=== PATIENT | male | born 1990 | race Caucasian/White ===

== ENCOUNTER 2022-06-09 12:15 | Emergency (ER) | payer SELFPAY ==
[2022-06-09 12:17] VITALS: BP 151/79; PULSE 69; RESP 16; TEMP 36.9; O2SAT 99; BMI 33.4
--- NOTE | 2022-06-09 12:42 | XR_ITS ---
WS: [id number] Exam: XR knee LT 3V* [id number] Date/Time of Exam: 06/09/2022 12:42 PM Reason For Exam: knee injury No fracture or dislocation noted. Signs of previous ACL reconstruction. No joint effusion seen. XR/XR knee LT 3V* [id number] IMPRESSION: 1. No fracture or joint effusion. 2. Postoperative changes of ACL reconstruction.
--- NOTE | 2022-06-09 13:10 | ED_ITS ---
HPI - Extremity Problem General: Chief complaint: Extremity Injury, Lower Stated complaint: Left knee pain Time Seen by Provider: 06/09/22 12:35 History of Present Illness: Patient is a 31-year-old male comes to the ED with left knee pain. Symptoms started approximately 1 week ago. He states that he was working at his job at [employer] and was offloading some shingles onto a roof. He tweaked his left knee while putting shingles up on the roof. He now has mild left knee pain that is constant. He is able to bear weight and ambulate and says it does not cause any worsening knee pain. Has full range of motion in left knee. He states that occasionally when ambulating he feels some worsening pain Associated symptoms: Deny chest pain, fever(s) or rash Review of Systems Const: Denies: fever(s), chills or fatigue Eyes: Denies: change in vision or eye discomfort ENMT: Denies: throat pain, odynophagia, nasal discharge or nasal congestion Card: Denies: chest pain, palpitations, edema, swelling of feet/ankles, dyspnea on exertion or orthopnea Resp: Denies: dyspnea, productive cough or non-productive cough GI: Denies: abdominal pain, nausea, vomiting, diarrhea, constipation or hematochezia : Denies: flank pain, difficulty urinating, dysuria or hematuria Musc: Reports: extremity pain (Left knee); Denies: neck pain, back pain or extremity swelling Skin/Breast: Denies: rash or new lesions Neuro: Denies: headache(s), numbness in extremities or weakness in extremities [facility] ED PFSH: Medical History (Updated 06/10/22 @ 19:27 by JEANETTE Sifuentes) No pertinent family history Surgical History (Updated 06/10/22 @ 19:27 by JEANETTE Sifuentes) No pertinent past surgical history Physical Exam Const: COMMON NORMALS: no acute distress, patient oriented x3, healthy appearing and alert GENERAL APPEARANCE: cooperative and comfortable HENMT: COMMON NORMALS: normocephalic HEAD & SCALP: normocephalic MOUTH: Normal oral and palatal mucosa present THROAT: posterior oropharynx normal and uvula midline Neck/C-Spine: COMMON NORMALS: supple GENERAL: Yes normal visual inspection Resp: COMMON NORMALS: normal respiratory effort, No retractions, No use of accessory muscles and clear to auscultation bilaterally AUSCULTATION: clear to auscultation bilaterally Cardio: COMMON NORMALS: regular rate, regular rhythm, S1 normal heart sound present, S2 normal heart sound present, No gallops present (Cardio), No clicks present (Cardio), No murmurs present (Cardio) and Peripheral pulses 2+ throughout RATE: regular rate RHYTHM: regular rhythm HEART SOUNDS: S1 normal heart sound present and S2 normal heart sound present PERIPHERAL PULSES: Peripheral pulses 2+ throughout GI: COMMON NORMALS: Normal to inspection, nondistended, normoactive bowel sounds present, Soft to palpation, non-tender and no masses PALPATION: Yes Soft to palpation : COMMON NORMALS: Yes no CVA tenderness BLADDER/KIDNEY EXAM: Yes no CVA tenderness Back/Pelvis: COMMON NORMALS: no CVA tenderness Extremity: COMMON NORMALS: normal to inspection NARRATIVE EXTREMITY EXAM: Patient's left knee appears normal on exam no other acute findings. He is able to weight-bear and ambulate without a limp. Neuro: COMMON NORMALS: patient oriented x3 SENSORIUM/ORIENTATION: Yes alert GAIT: Yes Normal gait present Skin: GENERAL SKIN EXAM: dry skin Course Vital Signs: Vital signs: Vital Signs Temperature 98.5 F 06/09/22 12:17 Pulse Rate 69 06/09/22 12:17 Respiratory Rate 16 06/09/22 12:17 Blood Pressure 151/79 06/09/22 12:17 Pulse Oximetry 99 06/09/22 12:17 Oxygen Delivery Me thod 06/09/22 12:17 MDM - Extremity (Nontraumatic) Medical Decision Making Patient is a 31-year-old male comes to the ED with left knee injury. He thinks he tweaked his left knee while putting shingles on a roof. Patient's left knee appears normal on exam no other acute findings. He is able to weight-bear and ambulate without a limp. X-ray of the left knee shows no fractures or joint effusion. Patient was diagnosed with left knee pain and discharged home. Told to follow-up with his PCP for reevaluation in the next 5 to 7 days. He was sent home with a prescription of ibuprofen and her milligrams to help with pain. Return to ED precautions given. Patient understood agree with plan. Lab Data Radiology Impressions Knee X-Ray 06/09/22 12:42 IMPRESSION: 1. No fracture or joint effusion. 2. Postoperative changes of ACL reconstruction. Discharge Plan Discharge Patient Disposition: Home Clinical Impression: Knee pain, left Qualifiers: Chronicity: acute Qualified Code(s): M25.562 - Pain in left knee Condition: Stable Prescriptions: New ibuprofen 800 mg tablet 800 mg PO Q8H PRN (Reason: pain) Qty: 20 0RF Discharge Orders: Discharge ED (Routine); Ordered 06/09/22 Ordered By: Lucien Contreras Discharge Diet: Regular Discharge Activity: Increase activity as tolerated Patient Instructions: Knee Pain (ED) Activity Restrictions/Additional Instructions: Follow-up with medical provider as directed in the next 5 to 7 days for reevaluation. Take medications as prescribed. Rest ice and elevate left knee. Return to the ER or your medical provider if condition worsens. Please read and understand discharge instructions. Thank you for choosing [facility] for your healthcare needs today. Please realize this is an emergency room and that we are providing you with a medical screening exam and this may not be complete and all inclusive of all the testing and or work up that you may need to determine your ailment or severity of your illness. It is very important that you follow up as instructed or that you return to the Emergency Department should you have concerns or if your condition changes or worsens in any way. Stand Alone Forms: Work/School Release Coding Level of Care Code ED Spool Cleaner for Carla Isidro Exam Comprehensive
== END 2022-06-09 13:37 | disposition home or self-care (01) ==
PROVIDERS: Emergency Provider Physician Assistant
DX: M25.562 Pain in left knee (principal)
CPT/HCPCS: 73562; 99283